=== PATIENT | female | born 1965 | race Caucasian/White ===

== ENCOUNTER 2020-04-05 13:57 | Inpatient (IN) | payer OTHER, SELFPAY ==
--- NOTE | ~2020-04-05 | CT_ITS ---
EXAMINATION: CT abdomen pelvis wo con DATE: 04/05/2020 20:27 INDICATION: Intractable vomiting TECHNIQUE: Computed tomography (CT) of the abdomen and pelvis was performed without intravenous contr ast. The dose-length product was 301.26 mGy-cm. Automated exposure control and iterative reconstructi on technique were employed. COMPARISON: 06/02/2018. FINDINGS: Patchy bilateral groundglass opacities, consistent with pneumonia. Heart size normal. No pl eural or pericardial effusion. No significant vascular abnormality. No lymphadenopathy. Status post cholecystectomy with pneumobilia. The spleen, pancreas, adrenal glands and right kidney a re unremarkable. Subtle low density lesion left kidney, most likely benign cysts. Mild lumbar spondyl osis. Nonobstructive bowel gas pattern. No free air or free fluid. IMPRESSION: 1. Patchy bilateral groundglass opacification of the lungs, consistent with pneumonia. Reviewed, dictated and finalized at location A. IMPRESSION: 1. Patchy bilateral groundglass opacification of the lungs, consistent with pne umonia.
--- NOTE | ~2020-04-05 | XR_ITS ---
XR chest 1V portable 04/06/2020 12:09 Indication: Pneumonia. Cough. Procedure: AP portable chest Comparison: No prior studies for comparison. Findings: Bibasilar infiltrates. Heart size normal. No pleural effusion, edema or pneumothorax. Impression: 1: Bibasilar infiltrates may represent atelectasis or pneumonia. Reviewed, dictated and finalized at location A. Impression: 1: Bibasilar infiltrates may represent atelectasis or pneumonia.
[2020-04-05 14:36] VITALS: BP 124/69; PULSE 110; RESP 18; TEMP 36.4; O2SAT 99
[2020-04-05 14:48] LABS: Basophils Percent Auto 0.2 % (0.2-1.2); Hematocrit 43.9 % (37.0-47.0); Hemoglobin 14.9 g/dL (12.0-15.0); Immature Granulocyte Absolute 0.01 K/mm3 (0.00-0.031); Immature Granulocyte Percent A 0.2 % (0-0.5); Lymphocytes Absolute Auto 0.55 K/mm3 (0.9-3.2); Lymphocytes Percent Auto 13.1 % (18.3-44.2); Mean Corpuscular HGB Conc 33.9 g/dl (32-36); Mean Corpuscular Hemoglobin 29.1 pg (26-34); Mean Corpuscular Volume 85.7 fl (80-100); Mean Platelet Volume 10.4 fl (7.4-10.4); Monocytes Absolute Auto 0.3 K/mm3 (0.1-0.6); Monocytes Percent Auto 6.2 % (2.6-8.5); Neutrophils Absolute Auto 3.4 K/mm3 (1.3-6.7); Neutrophils Percent Auto 80.3 % (45.5-73.1); Platelet Count Result 124 k/mm3 (150-375); Red Blood Count 5.12 M/mm3 (4.2-5.4); Red Cell Distribution Width 13.2 % (11.5-14.5); White Blood Count 4.2 K/mm3 (4.5-10.0)
[2020-04-05 15:23] LABS: Alanine Aminotransferase 17 U/L (4-35); Albumin Level 4.7 g/dL (3.5-5.1); Alkaline Phosphatase 154 U/L (38-126); Anion Gap 19 mmol/L (8-16); Aspartate Amino Transferase 29 U/L (14-36); Bilirubin,Total 0.5 mg/dL (0.2-1.3); Blood Urea Nitrogen 12 mg/dL (7-17); Calcium 9.2 mg/dL (8.4-10.2); Carbon Dioxide 12 mmol/L (22-30); Chloride 104 mmol/L (98-107); Estimated CRCL calculation 118 ml/min; Estimated Glomerular Filt Rate > 60; Glucose 308 mg/dL (65-105); Lipase 75 U/L (23-300); Potassium 4.6 mmol/L (3.4-5.0); Sodium 135 mmol/L (137-145)
[2020-04-05 18:02] LABS: Add Urine Microscopic? YES; Appearance Urine Clear (Clear); Bilirubin Urine Negative (Negative); Blood Urine Negative (Negative); Color Urine Yellow (Yellow); Glucose Urine UA 3+ mg/dL (Negative); Ketones Urine 2+ mg/dL (Negative); Leukocyte Esterase Ur Negative LEU/UL (Negative); Mucus Urine Rare /lpf; Nitrate Urine Negative (Negative); Protein Urine 3+ mg/dL (Negative); RBC Urine 0-2 /hpf (0-2); Squamous Epithelial Cell Urine Rare /hpf (Few); Urobilinogen Urine Negative mg/dL (<2.0); WBC Urine 0-3 /hpf
[2020-04-05 19:33] VITALS: BP 153/84; PULSE 107; RESP 18; O2SAT 98
[2020-04-05] MEDS: LACTATED RINGERS 1,000 ML 999 ML IV CONT (19:46)
[2020-04-05] MEDS: INSULIN HUMAN REGULAR (*BKC) 100 UNITS/ML IV PUSH (19:46)
[2020-04-05 19:59] LABS: Alveolar/Arterial O2 Gradient 0.6 mmHg; Base Excess ABG -17.5 mEq/l (+/-2.0); Device ROOM AIR; Fractional Inspired Oxygen 21 %; HCO3 ABG 8.9 mEq/l (22.0-26.0); Modified Allen's Test Pass; Oxygen Content ABG 20.7 %vol (16.0-22.0); Oxygen Saturation ABG 97.6 % (95.0-100.0); Oxyhemoglobin 96.7 % THb (90.0-100.0); PO2 ABG 120.4 mmHg (80.0-100.0); PO2 FiO2 Ratio Arterial Blood 5.73 %; Site Drawn RIGHT RADIAL; Total Hemoglobin 15.1 g/dL (12.0-18.0); pH ABG 7.185 (7.350-7.450)
[2020-04-05 21:01] LABS: Glucose Point of Care 256 (65-105)
[2020-04-05 21:06] VITALS: BP 144/77; PULSE 115; RESP 22; O2SAT 99
[2020-04-05 21:28] LABS: Beta-Hydroxybutyrate/Acetoacetate 4.28 mmol/L (0.02-0.27)
--- NOTE | 2020-04-05 21:30 | ED.NAVMDI ---
HPI - Nausea/Vomiting/Diarrhea General Chief complaint: Nausea/Vomiting/Diarrhea Stated complaint: n/v/lethargy Time Seen by Provider: 04/05/20 19:37 Source: patient Mode of arrival: ambulatory Limitations: no limitations History of Present Illness HPI Narrative: 55-year-old female History of diabetes Complains of a 2-day history of frequent nausea and vomiting which started yesterday She has a little bit of abdominal pain in her right lower quadrant, still has an appendix She has been taking her insulin After the CBC was reviewed questions were about cough and she says she has had a little for a couple of days but not productive and no shortness of breath No urinary symptoms Related Data Allergies Allergy/AdvReac Type Severity Reaction Status Date / Time codeine Allergy Unknown Verified 05/03/19 13:16 Review of Systems Review of Systems: All systems reviewed & are unremarkable except as noted in HPI and below Constitutional: Constitutional: Denies chills, Reports fatigue, Denies fever(s), Denies headache(s) and Reports weakness Eyes: Eyes: Reports no additional eye complaints and Denies change in vision ENT: Denies headache(s), Denies epistaxis, Denies nasal congestion and Denies sore throat Cardiovascular: Cardiovascular: Denies chest pain, Denies leg edema, Denies palpitations and Denies dyspnea Respiratory: Respiratory: Reports cough, Denies dyspnea and Denies wheezing Gastrointestinal: Gastrointestinal: Reports as per HPI, Denies abdominal pain, Denies diarrhea, Reports nausea and Reports vomiting Genitourinary: Genitourinary: Denies hematuria, Denies urinary frequency, Reports nocturia and Denies dysuria Musculoskeletal: Musculoskeletal: Denies deformity, Denies arthralgias, Denies joint swelling, Denies muscle weakness and Denies numbness Integumentary/Breasts: Skin/Breast: Denies rash and Denies wounds Neurologic: Denies headache(s), Denies focal weakness, Denies numbness and Denies weakness Psychiatric: Psychiatric: Reports no additional psychiatric complaints Endocrine: Endocrine: Reports fatigue and Denies palpitations Hematologic/Lymphatic: Hematologic/Lymphatic: Denies easy bleeding and Denies easy bruising Allergic/Immunologic: Allergic/Immunologic: Denies wheezing PMFSH Family History Family History (System 05/03/19 @ 13:16 by Nimco Morrison) Other Diabetes mellitus Social History Social History (System 05/03/19 @ 13:16 by Nimco Morrison) Smoking status: Never smoker Alcohol intake: never Exam Const: General: well developed and awake Nutritional Appearance: well nourished Orientation/consciousness: patient oriented x3 (alert) HENMT: Head: normocephalic and atraumatic Ears: external ears normal General nose exam: No nasal discharge present and no epistaxis Face and sinus: face symmetric Mouth: Yes dry mucous membranes Eyes: Conjunctivae: conjunctivae normal Sclera: sclerae normal EOM: EOMs intact bilaterally Neck: Neck: normal visual inspection, supple and no JVD Chest: Chest palpation & inspection: deferred Resp: Effort & Inspection: normal respiratory effort Auscultation: clear to auscultation bilaterally, no rales, no rhonchi, no wheezes and other (BS =) Cardio: Rate: regular rate and tachycardic Rhythm: regular rhythm Heart sounds: no gallops and no murmurs GI: Inspection: normal to inspection GI Palp: Yes Soft to palpation, No Guarding due to palpation present (GI) and No Rebound tenderness present Other: Mildly tender in the right lower quadrant without rebound or guarding : General: Yes no CVA tenderness Back/Spine/Pelvis: Back: no CVA tenderness Thoracic/Lumbar Spine: thoracic and lumbar spine normal to inspection Skin: General skin exam: normal color and no rashes or lesions noted Neuro: General: patient oriented x3 (alert), moves all extremities and no focal motor deficits Cranial nerves: Yes facial symmetry Speech: normal s
[2020-04-05 21:44] VITALS: BP 133/75; PULSE 103; RESP 28; O2SAT 99
[2020-04-05] MEDS: INSULIN HUMAN REGULAR (*BKC) 100 UNITS in SODIUM CHLORIDE 0.9% IV 99 ML IV CONT (21:49)
[2020-04-05] MEDS: LACTATED RINGERS 1,000 ML 500 ML IV CONT (21:51)
[2020-04-05 23:06] LABS: Glucose Point of Care 233 (65-105)
[2020-04-05] MEDS: KCL 20 MEQ/D5/0.45% SOD CHL 1,000 ML 150 ML IV CONT (23:30)
[2020-04-05 23:31] VITALS: BP 134/73; PULSE 97; RESP 22; O2SAT 98
[2020-04-05 23:54] LABS: Glucose Point of Care 206 (65-105)
[2020-04-06] VITALS (14 sets, daily range): BP systolic 102–130; BP diastolic 56–76; PULSE 82–100; RESP 16–29; TEMP 36.7–38.2; O2SAT 97–100; BMI 24.7
[2020-04-06] LABS: Anion Gap 14 mmol/L (8-16); Blood Urea Nitrogen 11 mg/dL (7-17); Calcium 9.2 mg/dL (8.4-10.2); Carbon Dioxide 15 mmol/L (22-30); Chloride 107 mmol/L (98-107); Estimated CRCL calculation 118 ml/min; Estimated Glomerular Filt Rate > 60; Glucose 217 mg/dL (65-105); Magnesium 1.6 mg/dL (1.6-2.3); Phosphorus 1.8 mg/dL (2.5-4.5); Potassium 3.5 mmol/L (3.4-5.0); Sodium 136 mmol/L (137-145)
--- NOTE | 2020-04-06 00:24 | ECG_ITS ---
Measurements Intervals [place] Rate: 89 P: 29 [place]: 124 QRS: 47 QRSD: 98 T: 25 QT: 350 QTc: 426 Interpretive Statements SINUS RHYTHM BORDERLINE ST-T WAVE ABNORMALITY- ANT/INF LEADS BORDERLINE ECG Electronically Signed On 04-06-2020 8:13:01 CDT by Darian Fox D.O.
--- NOTE | 2020-04-06 01:44 | ADMGEN ---
This patient, Edith Wiley, was admitted to Intensive Care Unit-4. Patient/family oriented to hospital policies and general routines including ID bracelet, bed and alarms, visiting hours, pain management, procedures, bathroom and other care routines, personal items, smoking policy, room service/diet, and visiting hours. Information on how to activate the Rapid Response Team has been discussed. Patient/Family are encouraged to report perceived risks to care and to ask questions if they do not understand what they are told or what they should do.
--- NOTE | 2020-04-06 01:58 | PM.IMHP ---
H&P: HPI History of Present Illness Date/Time: 04/06/20 01:58 Chief complaint: Nausea and vomiting Narrative: Edith Wiley is a 55 year old female with a past medical history of diabetes mellitus on oral medications who presented to the ER with nausea and vomiting. The patient arrived to the ER complaining of 2 day history frequent nausea and vomiting. She did not have any diarrhea or changes in her stools. She intermittently does occasionally have incontinence of stools when she thinks she has to pass gas. She denies having diarrhea. In the ER, she had reported some right lower quadrant abdominal pain and there was some concern for possible appendicitis. The patient subsequently underwent CT scan of the abdomen pelvis which was negative for appendicitis but demonstrated infiltrates. She still has some mild tenderness to palpation in her right lower quadrant but her abdomen is otherwise benign. She then reported having a little bit of a cough for couple of days. She denies having any shortness of breath. Her cough has been nonproductive. She denies any rhinorrhea, nasal congestion, loss of taste or smell. She has been having some mild sore throat. She denies any dysphagia. She has had decreased appetite for the last 2 or 3 days. She has been feeling feverish but has been afebrile since arrival. She lives with her 17-year-old daughter. She denies any known COVID-19 exposures but has been going out shopping and eating out. She had claimed to be taking her insulin and oral hypoglycemics in the ER. However, the patient told nursing staff that she does not know what her Basaglar doses and it is unclear when she actually last took her Basaglar. The patient states she has been running low on Basaglar. She states that her glucoses are usually in the mid 100s. She has never been in DKA previously. She has had approximately 20 lb weight loss over the last 3-5 months. She has not been able to follow-up with her spray unit feeder since June. She denies any history of diabetic retinopathy. She denies symptoms of neuropathy. She has been having white vaginal discharge and frequent vaginal itching. She has went to her network diagnostic support specialist 3 times since the beginning of February and has completed 3 courses of fluconazole and antifungal cream with only brief periods of improvement in her symptoms. Review of Systems Review of Systems: Narrative: 12 systems were reviewed with pertinent positives and negatives per HPI. Except as documented in the HPI, all other systems were reviewed and are negative. [facility] Past Medical History Medical History (Updated 04/06/20 @ 04:18 by Zari Bryant DO) ADD (attention deficit disorder) Bipolar disorder Depression with anxiety Suicide attempt 1989 Diabetes mellitus Diagnosed 2011 Hyperlipidemia Insomnia Intellectual disability Surgical History Surgical History History of incision and drainage To multiple thigh abscesses History of tubal ligation Hx of cholecystectomy 2009 Family History Family History Mother Diabetes mellitus Biological mother Sibling COPD (chronic obstructive pulmonary disease) Sibling Rheumatoid arthritis Social History Social History (Updated 04/06/20 @ 04:14 by Zari Bryant DO) Social History: She lives in [place] with her 17-year-old daughter. She has never been . She does not drink alcohol, smoke or use illicit substances. She is on disability. Hose Maker: Dr. Ogden Hand [employer]ator Dr. Arana Smoking status: Never smoker Second hand tobacco smoke exposure: Yes (adopted parents smoked in the house) Alcohol intake: never Substance use: never Spiritual care concerns: No Meds Home Medications and Allergies Home Medications Medication Instructions Recorded Confirmed Type aspirin 81 mg tablet,thompson
[2020-04-06 02:27] LABS: Glucose Point of Care 244 (65-105)
[2020-04-06 02:27] LABS: Glucose Point of Care 243 (65-105)
[2020-04-06 03:53] LABS: Glucose Point of Care 255 (65-105)
[2020-04-06 05:12] LABS: Hematocrit 35.6 % (37.0-47.0); Hemoglobin 12.5 g/dL (12.0-15.0); Immature Platelet Fraction Pct 4.3 % (0.9-11.2); Mean Corpuscular HGB Conc 35.1 g/dl (32-36); Mean Corpuscular Hemoglobin 29.3 pg (26-34); Mean Corpuscular Volume 83.4 fl (80-100); Mean Platelet Volume 10.5 fl (7.4-10.4); Platelet Count Result 121 k/mm3 (150-375); Red Blood Count 4.27 M/mm3 (4.2-5.4); Red Cell Distribution Width 13.2 % (11.5-14.5); White Blood Count 3.4 K/mm3 (4.5-10.0)
[2020-04-06 05:23] LABS: Lactate Dehydrogenase 472 U/L (313-618)
[2020-04-06 05:28] LABS: Anion Gap 10 mmol/L (8-16); Blood Urea Nitrogen 9 mg/dL (7-17); Calcium 8.9 mg/dL (8.4-10.2); Carbon Dioxide 19 mmol/L (22-30); Chloride 107 mmol/L (98-107); Estimated CRCL calculation 108 ml/min; Estimated Glomerular Filt Rate > 60; Glucose 246 mg/dL (65-105); Potassium 3.4 mmol/L (3.4-5.0); Sodium 136 mmol/L (137-145)
[2020-04-06 05:42] LABS: Glucose Point of Care 257 (65-105)
[2020-04-06] MEDS: KCL 20 MEQ/D5/0.45% SOD CHL 1,000 ML 150 ML IV CONT (05:50)
[2020-04-06 05:57] LABS: Glucose Point of Care 230 (65-105)
[2020-04-06 06:11] LABS: Hemoglobin A1C 10.9 % (<5.7)
[2020-04-06 06:38] LABS: Glucose Point of Care 217 (65-105)
[2020-04-06 07:39] LABS: Glucose Point of Care 198 (65-105)
[2020-04-06] MEDS: SODIUM CHLORIDE 0.9% IV 1,000 ML 999 ML IV CONT (08:19)
[2020-04-06] MEDS: ENOXAPARIN 40 MG/0.4 ML SYRINGE SUB-Q (08:20)
[2020-04-06] MEDS: SIMVASTATIN 20 MG TABLET 40 MG PO (08:20)
[2020-04-06] MEDS: INSULIN GLARGINE (*BKC) 100 UNITS/ML 16 UNITS SUB-Q ×2 (08:21→09:15)
[2020-04-06] MEDS: FAMOTIDINE 20 MG/2 ML VIAL IV PUSH ×2 (08:21→21:06)
[2020-04-06] MEDS: ASPIRIN 81 MG ENTERIC TABLET PO (08:21)
[2020-04-06 08:34] LABS: Glucose Point of Care 174 (65-105)
[2020-04-06 09:06] LABS: Glucose Point of Care 174 (65-105)
--- NOTE | 2020-04-06 09:41 | WPDCNINT ---
Assessment and Plan Assessment and plan (1) DKA (diabetic ketoacidoses): Code(s): E11.10 - Type 2 diabetes mellitus with ketoacidosis without coma Status: Acute Assessment and Plan: patient presented with nausea, vomiting, decreased p.o. intake, not been taking her insulin regularly, is probably some noncompliance involved. Patient was diagnosed with diabetic ketoacidosis in the ED, given IV fluids, placed on insulin infusion. - patient given additional fluid bolus this morning since she only received 1 L IV fluid bolus in the ER - patient has been transitioned to long-acting insulin Lantus and high-dose sliding scale insulin with Accu-Cheks - hemoglobin A1c 10.9 this admission (2) COVID-19 determined by clinical diagnostic criteria: Code(s): U07.1 - COVID-19 Status: Acute Assessment and Plan: patient complained of mild cough but no shortness of breath or hypoxia. CT scan of the abdomen showed patchy bilateral ground-glass opacification of the lungs consistent with pneumonia, PPD and thrombocytopenia noted. Ferritin LDH are normal, - SARS-CoV-2 PCR PCR has been obtained and pending - continue droplet, airborne and contact isolation / precautions (3) Vaginal candidiasis: Code(s): B37.3 - Candidiasis of vulva and vagina Status: Acute Assessment and Plan: likely related to poorly controlled diabetes, continue with fluconazole (4) DVT prophylaxis: Code(s): Z29.9 - Encounter for prophylactic measures, unspecified Status: Acute Assessment and Plan: Lovenox Additional Plan discussed with patient updated with her condition and plan of care. She is aware that the insulin infusion is could be turned off. Code status: Full code critical care time spent: 44 minutes Due to a high probability of clinically significant, life threatening deterioration, the patient required my highest level of preparedness to intervene emergently and I personally spent this critical care time directly and personally managing the patient. This critical care time included obtaining a history; examining the patient; pulse oximetry; ordering and review of studies; arranging urgent treatment with development of a management plan; evaluation of patient's response to treatment; frequent reassessment; and discussions with other providers. It was exclusive of separately billable procedures and treating other patients and teaching time. Please see Assessment and Plan section and the rest of the note for further information on patient assessment and treatment Manager [employer] Consult Note Consult date: 04/06/20 Time Seen: 07:04 Reason for consult: diabetic ketoacidosis, nausea, vomiting, suspect COVID-19 HPI: Edith Wiley is a 55 year old female past medical history of ADD, bipolar, diabetes, depression with suicide attempt, hyperlipidemia, does actual disability and insomnia presented the ED on 04/05/2020 complains of nausea, vomiting and abdominal pain. Patient was found to be in DKA with elevated blood sugars, elevated beta hydroxybutyrate an anion gap metabolic acidosis. A CT scan of the abdomen and pelvis was done which showed patchy bilateral ground-glass opacifications of the lungs, consistent with pneumonia but no intra-abdominal pathology as a with thinking of possible appendicitis given right lower quadrant abdominal pain. SARS-CoV-2 PCR swab was obtained and COVID-19 results are pending. Patient received 1 L of IV fluids in the ER, started on insulin infusion and transferred to the ICU for further management. Patient seen and examined this morning, denies any abdominal pain, nausea, vomiting, diarrhea. Patient also denies any shortness trouble breathing. Patient on room air, hemodynamically stable. Patient transitioned to long-acting insulin and sliding scale insulin early this morning. Patient is awake, alert, answers questions appropriately, she states she takes 32 units of Basaglar
[2020-04-06] MEDS: FLUCONAZOLE 100 MG/NACL 50 ML 100 MG/50 ML BTL 50 MG IVPB (10:12)
--- NOTE | 2020-04-06 10:24 | PM.IMPN ---
Progress Note: A&P Assessment and Plan (1) DKA (diabetic ketoacidoses): Code(s): E11.10 - Type 2 diabetes mellitus with ketoacidosis without coma Status: Acute Assessment and Plan: Patient preents with n/v and found to be in DKA. Patient admitted to ICU and started on DKA protocol. Patient did well and weaned off insulin drip earlier this morning. Diet started. Monitor for recurrent n/v. Lantus given. Contnue sliding scale protocol. (2) COVID-19 determined by clinical diagnostic criteria: Code(s): U07.1 - COVID-19 Status: Acute Assessment and Plan: Patient with mild cough but no SOB or hypoxia. CT scan showing patchy bilateral groundglass opacification of the lungs, consistent with pneumonia. Leukopenia and thrombocytopenia noted to suggest viral etiology. Ferritin, LDH normal. COVID-19 testing performed. Check CXR. Consider abx if has fever or other concerning symptoms for bacterial PNA. (3) Vaginal candidiasis: Code(s): B37.3 - Candidiasis of vulva and vagina Status: Acute Assessment and Plan: [place] related to poorly controlled DM. Trreated with fluconazole. Okay to stop. (4) Diabetes mellitus: Code(s): E11.9 - Type 2 diabetes mellitus without complications Status: Acute Assessment and Plan: A1c 10.9. The patient's blood glucose was reviewed on 04/06 As above. Continue AccuCheks covering with sliding scale. Hypoglycemia protocol available as needed. (5) DVT prophylaxis: Code(s): Z29.9 - Encounter for prophylactic measures, unspecified Status: Acute Assessment and Plan: Lovenox Subjective Date/time seen: 04/06/20 10:24 Interval history: Date of service: 04/06 55yo female with DM here for DKA. Abnormal lung findings on imaging and COVID testing ordered. No issues overnight. Denies n/v today. No CP or palpitations. No SOB. Mild nonproductive cough. Patient hungry. Exam Narrative: Exam Narrative: AF 99.1 118/64 90 28 99% ra Gen - NARD Chest - CTA bilaterally, nml RR CV - RRR S1/S2; Tele showing no significant dysrhythmias Abd - Soft, NT/ND, Positive BS Ext - No pedal edema Neuro - Alert and oriented. Nonfocal exam. Psych - Nml mood and affect Skin - Warm and dry Objective Data Vital Signs Vital Signs: Vital Signs - 24 hr 04/05/20 14:36 04/05/20 19:33 04/05/20 21:06 Temperature 97.5 F L Pulse Rate 110 H 107 H 115 H Respiratory Rate 18 18 22 H Blood Pressure 124/69 153/84 H 144/77 H Pulse Oximetry 99 98 99 04/05/20 21:44 04/05/20 23:31 04/06/20 02:00 Temperature Pulse Rate 103 H 97 90 Respiratory Rate 28 H 22 H 18 Blood Pressure 133/75 134/73 122/56 L Pulse Oximetry 99 98 100 04/06/20 04:00 04/06/20 04:15 04/06/20 06:00 Temperature 99.9 F H Pulse Rate 86 89 90 Respiratory Rate 29 H 27 H Blood Pressure 102/58 L 121/67 Pulse Oximetry 99 98 04/06/20 07:31 Temperature 99.1 F Pulse Rate 90 Respiratory Rate 28 H Blood Pressure 118/64 Pulse Oximetry 99 Intake/Output Intake/Output: Intake & Output 04/03/20 04/04/20 04/05/20 04/06/20 23:59 23:59 23:59 23:59 Intake Total 1000 1000 Output Total 400 Balance 1000 600 Meds/Results Medications: Active Medications Generic Name Dose Route Start Last Admin Trade Name Freq PRN Reason Stop Dose Admin Acetaminophen 650 mg 04/05/20 23:15 Acetaminophen 325 Mg Tablet PO Q4H PRN Mild Pain (1-3) or Fever Aspirin 81 mg 04/06/20 09:00 04/06/20 08:21 Aspirin 81 Mg Enteric Tablet PO 81 mg DAILY JOSÉ MIGUEL Administration Dextrose 12.5 gm 04/05/20 21:43 Dextrose 50% 25 Gm/50 Ml Syringe IV PUSH PRN PRN Hypoglycemia Protocol Enoxaparin Sodium 40 mg 04/06/20 09:00 04/06/20 08:20 Enoxaparin 40 Mg/0.4 Ml Syringe SUB-Q 40 mg DAILY JOSÉ MIGUEL Administration Famotidine 20 mg 04/06/20 09:00 04/06/20 08:21 Famotidine 20 Mg/2 Ml Vial IV
[2020-04-06 10:29] LABS: Glucose Point of Care 131 (65-105)
[2020-04-06] MEDS: ONDANSETRON INJ 4 MG/2 ML VIAL IV PUSH (11:43)
[2020-04-06 12:04] LABS: Glucose Point of Care 173 (65-105)
[2020-04-06 15:24] LABS: SARS-CoV-2 RNA PCR Positive
[2020-04-06] MEDS: ACETAMINOPHEN 325 MG TABLET 650 MG PO ×2 (16:07→23:30)
[2020-04-06 16:12] LABS: Glucose Point of Care 195 (65-105)
--- NOTE | 2020-04-06 19:20 | PC.NURSE ---
Report received per telephone from PRIETO Gaines RN.
--- NOTE | 2020-04-06 19:40 | PC.NURSE ---
Transfer received from ICU 4 per wheelchair. No complaints voiced.
[2020-04-06 21:34] LABS: Glucose Point of Care 217 (65-105)
[2020-04-07] VITALS: BP 125/64; PULSE 92; RESP 18; TEMP 38.2; O2SAT 99
--- NOTE | 2020-04-07 01:47 | PC.NURSE ---
Daylight Savings Time For Daylight Savings Time Ending in the Fall - Clocks are moved back. For Daylight Savings Time Beginning in the Spring - Clocks are moved ahead. For [facility], the time of change occurs at 0200 hrs. Time is taken from the seismograph observer. This entry on the patient's chart recognizes the change in time reflected during documentation. Example: 2 entries for vital signs may be charted for 0200 hrs.
[2020-04-07 04:00] VITALS: BP 132/73; PULSE 97; RESP 18; TEMP 37.7; O2SAT 97
[2020-04-07 06:33] LABS: Hematocrit 36.3 % (37.0-47.0); Hemoglobin 12.8 g/dL (12.0-15.0); Immature Granulocyte Absolute 0.01 K/mm3 (0.00-0.031); Immature Granulocyte Percent A 0.3 % (0-0.5); Immature Platelet Fraction Pct 4.4 % (0.9-11.2); Lymphocytes Absolute Auto 0.52 K/mm3 (0.9-3.2); Mean Corpuscular HGB Conc 35.3 g/dl (32-36); Mean Corpuscular Hemoglobin 28.7 pg (26-34); Mean Corpuscular Volume 81.4 fl (80-100); Mean Platelet Volume 10.5 fl (7.4-10.4); Monocytes Absolute Auto 0.2 K/mm3 (0.1-0.6); Monocytes Percent Auto 4.9 % (2.6-8.5); Neutrophils Absolute Auto 2.4 K/mm3 (1.3-6.7); Neutrophils Percent Auto 77.8 % (45.5-73.1); Platelet Count Result 125 k/mm3 (150-375); Red Blood Count 4.46 M/mm3 (4.2-5.4); Red Cell Distribution Width 13.2 % (11.5-14.5); White Blood Count 3.1 K/mm3 (4.5-10.0)
[2020-04-07 06:39] LABS: Albumin Level 3.5 g/dL (3.5-5.1); Anion Gap 12 mmol/L (8-16); Blood Urea Nitrogen 5 mg/dL (7-17); Calcium 8.4 mg/dL (8.4-10.2); Carbon Dioxide 21 mmol/L (22-30); Chloride 104 mmol/L (98-107); Estimated CRCL calculation 138 ml/min; Estimated Glomerular Filt Rate > 60; Glucose 190 mg/dL (65-105); Magnesium 1.6 mg/dL (1.6-2.3); Phosphorus 1.9 mg/dL (2.5-4.5); Potassium 3.1 mmol/L (3.4-5.0); Sodium 137 mmol/L (137-145)
[2020-04-07 08:00] VITALS: BP 133/75; PULSE 103; PULSE 97; RESP 18; RESP 20; TEMP 37.4; O2SAT 96; O2SAT 97
[2020-04-07 08:42] LABS: Glucose Point of Care 203 (65-105)
[2020-04-07] MEDS: POTASSIUM CHLORIDE 20 MEQ TABLET 40 MEQ PO (09:54)
[2020-04-07] MEDS: INSULIN ASPART (*BKC) 100 UNITS/ML SUB-Q (09:54)
[2020-04-07] MEDS: INSULIN GLARGINE (*BKC) 100 UNITS/ML 16 UNITS SUB-Q (09:55)
[2020-04-07] MEDS: ENOXAPARIN 40 MG/0.4 ML SYRINGE SUB-Q (09:58)
[2020-04-07] MEDS: ASPIRIN 81 MG ENTERIC TABLET PO (09:58)
[2020-04-07] MEDS: SIMVASTATIN 20 MG TABLET 40 MG PO (09:59)
[2020-04-07] MEDS: FAMOTIDINE 20 MG TABLET PO (09:59)
[2020-04-07] MEDS: lisinopriL 10 MG TABLET PO (09:59)
[2020-04-07] MEDS: MAGNESIUM SULF 2 GM/WATER 50ML 2 GM/50 ML BAG IVPB (09:59)
--- NOTE | 2020-04-07 10:47 | PM.DS ---
DS: Admitting Diagnosis Admitting Diagnosis Admitting Diagnosis: Nausea and vomiting DS: Discharge Diagnosis Discharge Diagnosis (1) DKA (diabetic ketoacidoses): Code(s): E11.10 - Type 2 diabetes mellitus with ketoacidosis without coma Status: Acute Assessment and Plan: Patient preents with n/v and found to be in DKA. Patient admitted to ICU and started on DKA protocol. Patient did well and weaned off insulin drip and switched to Lantus. Diet started. She did not know her glargine dose. Medications adjusted. (2) COVID-19: Code(s): U07.1 - COVID-19 Status: Acute Assessment and Plan: Patient with mild cough but no SOB or hypoxia. CT scan showing patchy bilateral ground glass opacification of the lungs, consistent with pneumonia. COVID testing was positive on 04/05/20. Mild leukopenia and thrombocytopenia noted related to COVID. Ferritin, LDH normal. CXR showing bibasilar infiltrates may represent atelectasis or pneumonia. Had low grade fever at one point. Did not meet criteria for Decadron or Remdesivir. Will need to monitor closely at home and return if symptoms worsen. She voices understanding of this. (3) Vaginal candidiasis: Code(s): B37.3 - Candidiasis of vulva and vagina Status: Acute Assessment and Plan: [place] related to poorly controlled DM. Treated with fluconazole. (4) Diabetes mellitus: Code(s): E11.9 - Type 2 diabetes mellitus without complications Status: Acute Assessment and Plan: A1c 10.9. The patient's blood glucose was monitored closely. As above. She was monitored with AccuCheks covering with sliding scale. Hypoglycemia protocol was available as needed. DS: Summary Hospital Course Reason for hospitalization: 55yo female with DM here for n/v and found to be in DKA. Please see H&P for detials. Hospital Course: Please see above Status at Discharge Cognitive/behavioral status at discharge: PATIENT IS STABLE AT DISCHARGE Time Spent with Patient Time attestation: Total time spent providing and/or coordinating discharge services: 35 minutes Time spent: Greater than 30 minutes Exam Narrative: Exam Narrative: She complaiins of weight loss of 40# over the past year. No breast mammogram or colonoscopy. Episodes of stool incontinence rarely over the past 6 months. She denies hard stool. No melana or hematachezia. Her physician is aware of this weight loss. Tm 100.7 99.4 133/75 97 20 97% ra Gen - NARD Chest - CTA bilaterally, nml RR; breast exam without obvious masses CV - RRR S1/S2 Abd - Soft, NT/ND, Positive BS. No HSM Ext - No pedal edema Psych - Nml mood and affect Skin - Warm and dry Lymph - no anterior cervical, posterior cervical, supraclavicular, axillary or femoral lymph node enlargement DS: Data Data Completed and Pending Labs on day of discharge: Labs from last 24 hours 04/07/20 04/07/20 04/07/20 08:14 05:55 05:55 WBC 3.1 L RBC 4.46 Hgb 12.8 Hct 36.3 L MCV 81.4 MCH 28.7 MCHC 35.3 RDW 13.2 Plt Count 125 L MPV 10.5 H Immature Gran % (Auto) 0.3 Neut % (Auto) 77.8 H Lymph % (Auto) 17.0 L [place] % (Auto) 4.9 Eos % (Auto) 0.0 Baso % (Auto) 0.0 L Lymph # (Auto) 0.52 L [place] # (Auto) 0.2 Eos # (Auto) 0.0 Baso # (Auto) 0.0 Abs Immat Gran (auto) 0.01 Absolute Neuts (auto) 2.4 Absolute Nucleated RBC 0.0 Nucleated RBC % 0.0 % Immature Plt Fraction 4.4 Sodium 137 Potassium 3.1 L Chloride 104 Carbon Dioxide 21 L Anion Gap 12 BUN 5 L Creatinine 0.30 L Estim Creat Clear Calc 138 Estimated GFR > 60 Glucose 190 H POC Capillary Glucose 203 H Calcium 8.4 Phosphorus 1.9 L Magnesium 1.6 Albumin 3.5 SARS-CoV-2 RNA (RT-PCR) 04/06/20 04/06/20 04/06/20 21:16 16:02 11:40 WBC RBC Hgb Hct MCV MCH MCHC RDW Plt Count MPV Fidelina
[2020-04-07] MEDS: POTASSIUM PHOS,M-BASIC-D-BASIC 20 MMOL in SODIUM CHLORIDE 0.9% IV 250 ML 62.5 MMOL IVPB (11:32)
[2020-04-07 12:00] VITALS: BP 118/49; PULSE 103; RESP 18; TEMP 37.4; O2SAT 96
[2020-04-07 12:26] LABS: Glucose Point of Care 188 (65-105)
== END 2020-04-07 16:30 | disposition home or self-care (01) | DRG 420 ==
LOC: ANHED 21:43 → ANHICU 04-06 02:40 → ANH3MEDSUR 04-07 11:06 → ANHICU 04-11 05:54
PROVIDERS: Admitting Provider Internal Medicine; Emergency Provider Emergency Medicine; Visit Provider Internal Medicine
DX: E11.10 Type 2 diabetes mellitus with ketoacidosis without coma (principal); U07.1 COVID-19; Z79.4 Long term (current) use of insulin; F41.8 Other specified anxiety disorders; F98.8 Other specified behavioral and emotional disorders with onset usually occurring in childhood and adolescence; B37.3 Candidiasis of vulva and vagina; F31.9 Bipolar disorder, unspecified; E78.5 Hyperlipidemia, unspecified
CPT/HCPCS: 36415; 36600; 71045; 74176; 80048; 80053; 80069; 81001; 82010; 82728; 82805; 82948; 83036; 83615; 83690; 83735; 84100; 85025; 85027; 85055; 87635; 93005; 96361; 96365; 96366; 96368; 96376; 99291; A9270; C9803; J1450; J1650; J1815; J2405; J3475; J3480; J7030; J7050; J7120; U0003

== ENCOUNTER 2020-08-22 11:07 | Outpatient (CLI) | payer OTHER, SELFPAY ==
[2020-08-22 12:37] LABS: Anion Gap 10 mmol/L (8-16); Blood Urea Nitrogen 18 mg/dL (7-17); Calcium 9.8 mg/dL (8.4-10.2); Carbon Dioxide 26 mmol/L (22-30); Chloride 102 mmol/L (98-107); Cholesterol 194 mg/dL (0-200); Estimated Glomerular Filt Rate > 60; Glucose 333 mg/dL (65-105); HDL Direct 59 mg/dL; Potassium 4.2 mmol/L (3.4-5.0); Sodium 138 mmol/L (137-145); Triglycerides 104 mg/dL (<150)
[2020-08-22 12:49] LABS: LDL Cholesterol Direct 114 mg/dL
[2020-08-22 13:12] LABS: Creatinine Urine 71.1 mg/dL
[2020-08-22 13:17] LABS: MALB Creatinine Ratio 23.5 mg/g (0-30); Microalbumin Urine Random 16.7 mg/L (0-16.7)
== END 2020-08-22 11:08 | disposition home or self-care (01) ==
LOC: ANHWCLAB 11:11
PROVIDERS: Visit Provider Internal Medicine Endocrinology, Diabetes & Metabolism
DX: E11.9 Type 2 diabetes mellitus without complications (principal)
CPT/HCPCS: 36415; 80048; 80061; 82043; 82607; 84443

== ENCOUNTER 2020-12-03 11:11 | Outpatient (CLI) | payer OTHER, SELFPAY ==
[2020-12-03 16:54] LABS: Cholesterol 181 mg/dL (0-200); HDL Direct 66 mg/dL; Triglycerides 73 mg/dL (<150)
[2020-12-03 17:05] LABS: LDL Cholesterol Direct 89 mg/dL
== END 2020-12-03 11:12 | disposition home or self-care (01) ==
LOC: ANHWCLAB 11:13
PROVIDERS: Referring Provider Internal Medicine Endocrinology, Diabetes & Metabolism; Visit Provider Internal Medicine Endocrinology, Diabetes & Metabolism
DX: E78.5 Hyperlipidemia, unspecified (principal)
CPT/HCPCS: 36415; 80061

== ENCOUNTER 2021-03-03 11:11 | Outpatient (CLI) | payer OTHER, SELFPAY ==
[2021-03-03 17:05] LABS: Hemoglobin A1C 10.7 % (<5.7)
[2021-03-03 17:08] LABS: Anion Gap 15 mmol/L (8-16); Blood Urea Nitrogen 13 mg/dL (7-17); Calcium 10.5 mg/dL (8.4-10.2); Carbon Dioxide 24 mmol/L (22-30); Chloride 97 mmol/L (98-107); Estimated Glomerular Filt Rate > 60; Glucose 428 mg/dL (65-110); Potassium 4.8 mmol/L (3.4-5.0); Sodium 136 mmol/L (137-145)
== END 2021-03-03 11:12 | disposition home or self-care (01) ==
LOC: ANHWCLAB 11:14
PROVIDERS: Visit Provider Internal Medicine Endocrinology, Diabetes & Metabolism
DX: E11.65 Type 2 diabetes mellitus with hyperglycemia (principal); Z79.4 Long term (current) use of insulin
CPT/HCPCS: 36415; 80048; 83036

== ENCOUNTER 2025-01-30 11:23 | Emergency (ER) | payer OTHER, SELFPAY ==
--- NOTE | ~2025-01-30 | XR_ITS ---
XR finger 4th RT min 2V 01/30/2025 12:21 Indication: Right fourth finger pain Procedure: 4 views right fourth finger Comparison: No prior studies for comparison. Findings: There is anatomic alignment. No fracture, subluxation or dislocation. 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 Mild soft tissue swelling overlying the tuft. Impression: 1: No acute bone or joint abnormality. Reviewed, dictated and finalized at location O. Impression: 1: No acute bone or joint abnormality.
[2025-01-30 11:30] VITALS: BP 120/59; PULSE 71; RESP 16; TEMP 36.2; O2SAT 100
--- NOTE | 2025-01-30 12:01 | ED.UPPEXIN ---
HPI - Extremity Injury (Upper) General Chief Complaint: Extremity Injury, Upper Stated Complaint: Right Hand Finger Pain Time Seen by Provider: 01/30/25 12:01 Source: patient, RN notes reviewed and old records reviewed Mode of arrival: ambulatory Limitations: no limitations History of Present Illness HPI narrative: 59-year-old female presents to the [facility] with right ring finger pain, swelling to the tip. States that she closed it in a window approximately 1600 yesterday. Area had been cleaned. 1 cm healing flap of skin noted. Adhered to tip of finger. Unknown last Tdap Onset (ago): day(s) (1) Related Data Home Medications ?Medication ?Instructions ?Recorded ?Confirmed ?Last Taken ?Type empagliflozin 25 mg tablet mg 01/30/25 Unknown History (Jardiance) estradiol 2 mg tablet mg 01/30/25 Unknown History Allergies Allergy/AdvReac Type Severity Reaction Status Date / Time No Known Allergies Allergy Verified 01/30/25 11:43 Review of Systems Review of Systems: All systems reviewed & are unremarkable except as noted in HPI and below Constitutional: Constitutional: Reports no additional constitutional complaints Musculoskeletal: Musculoskeletal: Reports no additional musculoskeletal complaints Integumentary/Breasts: Skin/Breast: Reports as per HPI [facility] Past Medical History Medical History Intellectual disability Bipolar disorder Depression with anxiety Suicide attempt 1989 Insomnia ADD (attention deficit disorder) Hyperlipidemia Diabetes mellitus Diagnosed 2011 Surgical History Surgical History History of tubal ligation Hx of cholecystectomy 2009 History of incision and drainage To multiple thigh abscesses Family History Family History Mother Diabetes mellitus Biological mother Sibling COPD (chronic obstructive pulmonary disease) Sibling Rheumatoid arthritis Social History Social History Social History: She lives in [place] with her 17-year-old daughter. She has never been . She does not drink alcohol, smoke or use illicit substances. She is on disability. 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 There is no relevant family history pertinent to the patient complaint. Exam Const: General: cooperative, healthy appearing, comfortable, no acute distress, well developed, alert and well nourished Nutritional Appearance: well nourished Orientation/consciousness: patient oriented x3 Limitations: no limitations HENMT: Head: normal to inspection Eyes: General: appearance normal, both eyes and all related structures Alignment and Position: alignment normal Neck: Neck: normal visual inspection, full ROM, no lymphadenopathy and no meningeal signs Chest: Chest palpation & inspection: normal inspection of the chest Resp: Effort & Inspection: normal respiratory effort and able to speak in complete sentences Cardio: Rate: regular rate Skin: General skin exam: normal color and no rashes or lesions noted Other: Wound already healing, scabbed over tip of right ring finger. Bruising swelling noted. Neuro: General: patient oriented x3, gait normal, moves all extremities and no meningeal signs Cognition (Neuro): normal cognition Speech: normal speech Gait exam (Neuro): Normal gait present Extrem: General: normal to inspection, full ROM, capillary refill normal and normal gait Psych: Appearance: grossly normal and well kempt Mental Status: mental status grossly normal Speech and movement: Normal speech and movement present and Clear speech present Affect: normal affect Attitude: cooperative Course Course Level of Care: Express Care Visit Vital Signs Vital signs: Vital Signs Temperature 97.2 F L 01/30/25 11:30 Pulse Rate 71 01/30/25 11:30 Respiratory Rate 16 01/30/25 11:30 Blood Pressure 120/59 L 01/30/25 11:30 Pulse Oximetry 100 01/30/25 11:30 Oxygen Delivery Room Air 01/30/25 11:30 Temperature 97.2 F L 01/30/25 11:30 Pulse Rate 71 01/30/25 11:30 Respiratory Rate 16 01/30/25 11:30 Blood Pressure 120/59 L 01/30/25 11:30 Pulse Oximetry 100 01/30/25 11:30 Oxygen Delivery Room Air 01/30/25 11:30 Reviewed MDM - Extremity Injury (Upper) MDM Narrative Medical decision making narrative: Patient sitting in exam room. Patient is nontoxic, vitals stable. Patient presents with a wound approximately 20 hours prior to arrival, RT healing. X-ray showed no signs of a fracture. Will cover with an antibiotic due to delayed medical attention seeking, updated Tdap. Patient appropriate for outpatient treatment with close follow-up. Discharge instructions reviewed with patient, as well as provided in writing per nursing staff. The instructions also include specific and strict return/GO TO THE ER as well as f/u information. All questions have been answered, and the patient deny any further questions with discharge and discharge plan. Some parts of this dictation were generated by voice recognition software and may contain typographical and/or grammatical inaccuracies. Differential Diagnosis Differential diagnosis: Likely other (Avulsion, laceration) Critical Care Time Critical Care Time Critical Care Time: No Discharge Plan Discharge Clinical Impression: Finger laceration, Vaccine for [id number], combined Patient Disposition: Home Condition: Stable Instructions: Antibiotic Form, Finger Laceration (ED) Additional Instructions: Keep area clean and dry. Wash twice a day at least with warm soapy water. Pat dry. When not at home keep it covered with a Band-Aid. Take Tylenol as needed for pain. Apply ice every 2-3 hours for 15-20 minutes while awake Follow-up with primary care provider Take antibiotic as prescribed to reduce the chances of infection For new or worsening symptoms go directly to the emergency room Patient Language: Tristanian Prescriptions: New cephalexin 500 mg capsule 500 mg PO Q8H 7 Days Qty: 21 0RF No Action estradiol 2 mg tablet Jardiance 25 mg tablet (DME) OneTouch Verio test strips Strip See Rx Instructions .Route Qty: 300 1RF Rx Instructions: check three times daily glipizide 10 mg tablet 10 mg PO BID Qty: 180 1RF lisinopril 10 mg tablet 10 mg PO DAILY Qty: 90 1RF metformin 500 mg tablet extended release 24 hr 1,000 mg PO BID Qty: 180 1RF simvastatin 40 mg tablet 40 mg PO DAILY Qty: 90 1RF hydrocortisone 2.5 % cream 1 applic topical BID Qty: 30 0RF levocetirizine 5 mg tablet 5 mg PO DAILY Qty: 30 0RF aspirin [Adult Low Dose Aspirin] 81 mg tablet,delayed release (DR/EC) 81 mg PO DAILY Qty: 90 0RF insulin lispro protamin-lispro [Humalog Mix 75-25 KwikPen] 100 unit/mL (75-25) insulin pen See Rx Instructions subcut QAM Qty: 27 1RF Rx Instructions: 20 units q am and 10 units q pm subcut every morning; (DME) pen needle, diabetic [BD Ultra-Fine Orig Pen Needle] 29 gauge x 1/2 needle See Rx Instructions .Route Qty: 200 1RF Rx Instructions: use to inject insulin twice daily Follow-up/Referrals: Russ,Deepika Asif [facility]ER [Primary Care Provider, Unknown] - 1 Week Clinical Impression: Finger laceration Time of Disposition: 12:38
[2025-01-30] MEDS: TETANUS,DIPHTHERIA,AC PERTUSSIS ADULT (0.5 ML) BOOSTRIX IM (12:25)
== END 2025-01-30 12:45 | disposition home or self-care (01) ==
PROVIDERS: Emergency Provider Nurse Practitioner; PCP Nurse Practitioner Family
DX: S61.214A Laceration without foreign body of right ring finger without damage to nail, initial encounter (principal); W23.0XXA Caught, crushed, jammed, or pinched between moving objects, initial encounter; F31.9 Bipolar disorder, unspecified; F41.8 Other specified anxiety disorders; Z91.51 Personal history of suicidal behavior; F98.8 Other specified behavioral and emotional disorders with onset usually occurring in childhood and adolescence; E11.9 Type 2 diabetes mellitus without complications; E78.5 Hyperlipidemia, unspecified; Z23 Encounter for immunization
CPT/HCPCS: 73140; 90715; 99213; G0463